=== PATIENT | female | born 1950 | race Caucasian/White ===

== ENCOUNTER 2021-03-28 09:57 | Outpatient (CLI) | payer MEDICARE ==
[2021-03-28 11:29] LABS: Anion Gap 16 mmol/L (10-20); BUN (Urea Nitrogen) 15 mg/dL (9.8-20.1); Calc. Creatinine Clearance 0 mL/min (70-130); Calcium 9.3 mg/dL (7.8-10.44); Carbon Dioxide 27 mmol/L (23-31); Chloride 101 mmol/L (98-107); Glucose 97 mg/dL (80-115); Potassium 3.6 mmol/L (3.5-5.1); Sodium 140 mmol/L (136-145)
[2021-03-28 23:42] LABS: SARS-CoV-2 PCR by NAA Not Detected (NotDetected)
== END 2021-03-28 09:58 | disposition home or self-care (01) ==
LOC: CSHLAB 09:57
PROVIDERS: ATTEND Specialist
DX: Z01.812 Encounter for preprocedural laboratory examination (principal); Z20.822 Contact with and (suspected) exposure to COVID-19; I48.91 Unspecified atrial fibrillation
CPT/HCPCS: 80048; U0003; U0005

== ENCOUNTER → 2021-03-31 | Day surgery (SDC) | payer MEDICARE ==
[2021-03-31 10:29] VITALS: BMI 41.7
[2021-03-31 10:35] VITALS: BP 148/80; TEMP 98
== END ==
LOC: CSHSDC 07:53
PROVIDERS: ATTEND Specialist
DX: I48.11 Longstanding persistent atrial fibrillation (principal); E78.2 Mixed hyperlipidemia; Z79.899 Other long term (current) drug therapy; E03.9 Hypothyroidism, unspecified; F41.9 Anxiety disorder, unspecified; M81.0 Age-related osteoporosis without current pathological fracture; Z95.5 Presence of coronary angioplasty implant and graft; Z79.82 Long term (current) use of aspirin; Z95.1 Presence of aortocoronary bypass graft; E66.01 Morbid (severe) obesity due to excess calories
CPT/HCPCS: 92960; 93005; 93010

== ENCOUNTER 2021-11-23 10:57 | Outpatient (CLI) | payer OTHER ==
[2021-11-23 12:06] LABS: Anion Gap 14 mmol/L (10-20); BUN (Urea Nitrogen) 17 mg/dL (9.8-20.1); Calc. Creatinine Clearance 0 mL/min (70-130); Calcium 9.1 mg/dL (7.8-10.44); Carbon Dioxide 24 mmol/L (23-31); Chloride 103 mmol/L (98-107); Estimated GFR 73; Glucose 95 mg/dL (83-110); Potassium 3.6 mmol/L (3.5-5.1); Sodium 137 mmol/L (136-145)
== END 2021-11-23 10:58 | disposition home or self-care (01) ==
LOC: CSHLAB 10:57
PROVIDERS: ATTEND Specialist
DX: Z01.812 Encounter for preprocedural laboratory examination (principal); I48.91 Unspecified atrial fibrillation
CPT/HCPCS: 80048

== ENCOUNTER 2021-11-28 06:47 | Day surgery (SDC) | payer MEDICARE ==
[2021-11-28 07:20] VITALS: BP 171/89; TEMP 97.8
[2021-11-28] MEDS ORDERED: PROPOFOL 20 ML ONE (07:46)
[2021-11-28] MEDS ORDERED: FLU VACC QS2022-23(65YR UP)/PF 240 MCG/0.7 ML SYRINGE IM ONE (10:00)
== END 2021-11-28 09:24 | disposition home or self-care (01) ==
LOC: CSHSDC 06:47
PROVIDERS: ATTEND Specialist
PROC: 5A2204Z Restoration of Cardiac Rhythm, Single (ICD-10-PCS; principal; 2021-11-28)
DX: I48.0 Paroxysmal atrial fibrillation (principal); I25.10 Atherosclerotic heart disease of native coronary artery without angina pectoris; I10 Essential (primary) hypertension; E78.2 Mixed hyperlipidemia; E03.9 Hypothyroidism, unspecified; J45.909 Unspecified asthma, uncomplicated; E66.01 Morbid (severe) obesity due to excess calories; F41.9 Anxiety disorder, unspecified; Z79.82 Long term (current) use of aspirin; Z79.899 Other long term (current) drug therapy; Z68.41 Body mass index [BMI] 40.0-44.9, adult
CPT/HCPCS: 92960; 93005; 93010; J2704